=== PATIENT | male | born 1965 | race Caucasian/White ===

== ENCOUNTER 2016-09-06 18:46 | Emergency (ER) | payer OTHER ==
--- NOTE | ~2016-09-06 | CR181 ---
[facility] A Service of [facility] RADIOLOGY TEXT RESULTS PATIENT: CHRISSY VALE LOCATION: SED : 61 UNIT #: [id number] AGE: [address]: Mundo Wiggins MD SEX: M ORDER DR: [id number] [place] [id number] E MR#: [id number] Acc #: [id number] NAME: CHRISSY VALE. : 1965 SEX: M STUDY DATE/TIME: 09/06/2016 19:31 UNIT: SED ROOM: STUDY DESCRIPTION: CR Lumbar Spine 2 or 3 Views Attending Physician: Mundo Wiggins M.D. Ordering Physician: Physician Non-Staff Primary Care Physician: Gagandeep Laboy M.D. MEDICAL IMAGING REPORT This report is preliminary unless electronic signature is present. EXAM Lumbar spine, 09/06/2016 HISTORY 51-year-old male with low back pain for 4 - 5 days after lifting heavy objects at work. COMPARISON STUDIES None. FINDINGS 3 views of the lumbar spine demonstrate no acute fracture or subluxation. Vertebral body heights alignment normally maintained. Disc spaces are within normal limits. Facets are unremarkable. Sacrum and SI joints intact. IMPRESSION Unremarkable lumbar spine Dictated by... Sony Garrett M.D. THIS IS AN ELECTRONICALLY VERIFIED REPORT Sony Garrett M.D. at 09/07/2016 10:57 PM [place] TD: 09/06/2016 22:28 JOB #: [id number] [facility] A Service of [facility] RADIOLOGY TEXT RESULTS PATIENT: CHRISSY VALE LOCATION: SED : 61 UNIT #: [id number] AGE: [address]: Mundo Wiggins MD SEX: M ORDER DR: MEDICAL IMAGING REPORT Page 1 of 1
[2016-09-06] MEDS ORDERED: NO MEDICATIONS (19:04)
[2016-09-06 20:54] LABS: URINE SOURCE CLEAN CATCH
[2016-09-06 20:57] LABS: MICRO INDICATED? NO; URINE APPEARANCE CLEAR; URINE BILIRUBIN NEG (NEG); URINE BLOOD NEG (NEG); URINE COLOR YELLOW; URINE GLUCOSE NEG (NORM); URINE KETONE TRACE (NEG); URINE LEUKOCYTE ESTERASE NEG (NEG); URINE NITRATE NEG (NEG); URINE PH 7.5 (5-8); URINE PROTEIN NEG (NEG); URINE SPECIFIC GRAVITY 1.015 (1.003-1.035); URINE UROBILINOGEN 0.2 MG/DL (NORM)
== END 2016-09-06 21:33 | disposition home or self-care (01) ==
LOC: SED 18:46
PROVIDERS: Emergency Medicine
DX: S39.012A Strain of muscle, fascia and tendon of lower back, initial encounter (principal); Z88.1 Allergy status to other antibiotic agents; Z88.0 Allergy status to penicillin; X50.0XXA Overexertion from strenuous movement or load, initial encounter; Y93.89 Activity, other specified; Y92.89 Other specified places as the place of occurrence of the external cause; Y99.0 Civilian activity done for income or pay
CPT/HCPCS: 72100; 81003; 96372; 99284; J1885